=== PATIENT | male | born 1940 | race Caucasian/White ===

== ENCOUNTER 2019-04-25 21:54 | Observation (INO) ==
[2019-04-25] MEDS ORDERED: ALBUTEROL SULFATE/IPRATROPIUM 3 ML NEBU IH ONE (22:12)
[2019-04-25] MEDS ORDERED: predniSONE 20 MG TABLET PO ONE (22:13)
[2019-04-25 22:28] LABS: Hematocrit 36.8 % (42.0-52.0); Hemoglobin 11.5 gm/dL (13.5-18.0); Mean Cell Volume 104.5 fl (78-100); Mean Corpuscular Hemoglobin 32.7 pg (27-31); Mean Corpuscular Hgb Conc 31.3 g/dl (32-36); Mean Platelet Volume 10.5 fl (8-11.3); Neutrophil % 85.6 % (42-75.0); Platelet Count 170 K/mm3 (150-450); Red Blood Count 3.52 M/mm3 (4.7-6.0); Red Cell Distribution Width 12.3 % (11.5-14.0)
[2019-04-25 22:34] LABS: Venous Blood Gas HCO3 32.6 mmol/L (22.0-29.0); Venous Blood Gas pH 7.25 (7.32-7.43)
[2019-04-25 22:36] LABS: BUN/Creatinine Ratio 26.9 (9.0-21.6); Blood Urea Nitrogen 28 mg/dL (6-23); Calcium * 8.3 mg/dL (7.9-10.9); Chloride 101 mmol/L (97-106); Glucose * 208 mg/dL (70-110); Sodium 140 mmol/L (132-142)
[2019-04-25] MEDS ORDERED: AZITHROMYCIN 250 MG TABLET PO ONE (22:53)
[2019-04-25] MEDS ORDERED: ALBUTEROL SULFATE 2.5 MG/0.5 ML VIAL.NEB IH ONE (23:28)
--- NOTE | 2019-04-25 23:44 | ERNOTE ---
Dyspnea - Date Date of Service: 04/25/19 - General Presenting Symptoms: shortness of breath Time Seen by Provider: 04/25/19 22:14 Source: patient Exam Limitations: no limitations - Immun/Allergies/Home Medications Immunizations: IMMUNIZATION HX Immunizations Up to Date Yes History of Influenza Vaccine More Information Required Hx Pneumococcal Vaccination More Information Required Allergies/Adverse Reactions: Allergies Iodinated Contrast Media [Iodinated Contrast- Oral and IV Dye] Adverse Reaction (Intermediate, Verified 04/25/19 22:10) severe rash Home Medications: HOME MEDICATIONS albuterol sulfate 2.5 mg IH DAILY ml 11/14/17 [Last Taken 04/24/19] arformoterol 15 mcg/2 mL solution for nebulization 15 mcg IH Q12H 11/14/17 [Last Taken 04/25/19] aspirin 81 mg chewable tablet 81 mg PO DAILY 11/14/17 [Last Taken 04/25/19 21:00] budesonide 0.25 mg/2 mL suspension for nebulization 0.25 mg IH Q12H 11/14/17 [Last Taken 04/25/19 09:00] ipratropium bromide 0.02 % solution for inhalation 2.5 ml IH Q6H 11/14/17 [Last Taken 04/25/19 15:00] Contour Next Test Strips See Dose Instructions .ROUTE .MEDSUPPLY #100 ea NS 04/14/18 [Last Taken Unknown] Unilet GP Lancet See Dose Instructions .ROUTE .MEDSUPPLY #100 ea NS 04/14/18 [Last Taken Unknown] glimepiride 4 mg tablet 4 mg PO BID #180 tab 07/20/18 [Last Taken 04/25/19 17:00] pioglitazone 15 mg tablet 15 mg PO DAILY #90 tab 07/20/18 [Last Taken 04/25/19 09:00] vitamin B complex 1 tab PO DAILY #90 tab 08/26/18 [Last Taken 04/25/19 09:00] alprazolam 0.5 mg tablet 0.5 mg PO QHS #60 tab 02/15/19 [Last Taken 04/24/19 21:00] alprazolam 0.25 mg tablet 0.25 mg PO .COMPLEX #60 tab 03/24/19 [Last Taken 04/25/19 18:00] carvedilol 6.25 mg tablet 6.25 mg PO BID #180 tab 04/12/19 [Last Taken 04/25/19 17:00] lisinopril 20 mg tablet 20 mg PO DAILY #90 tab 04/12/19 [Last Taken 04/24/19 21:00] simvastatin 40 mg tablet 40 mg PO QPM #90 tab 04/12/19 [Last Taken 04/24/19 21:00] Cholecalciferol (Vitamin D3) [Vitamin D] 2,000 unit PO DAILY 04/26/19 [Last Taken 04/25/19 09:00] Furosemide 5 mg PO .QOD 04/26/19 [Last Taken 04/24/19 09:00] - History of Present Illness Narrative: 78-year-old male presents with shortness of breath. He is brought in by EMS crews for shortness of breath. They stated that when they arrived his oxygen but she is supposed to chronically be on is actually turned off. Patient reports having 2 episodes of shortness of breath today. First episode he was on oxygen, felt short of breath, took a Xanax, and felt improvement/relief of symptoms. Later today/today patient had similar episode that did not resolve when he took his home Xanax. He has a past medical history of severe COPD and requires home O2 and BiPAP. He denies recent fevers or productive cough. Patient states he feels like he has "too much carbon dioxide buildup". Severity: moderate Treatment CUSTOMER SUPPORT SPECIALIST: paramedics Initiating event: Reports: unknown Frequency of episodes: Reports: occassional episodes Modifying Factors - (Improves): Reports: oxygen Modifying Factors (Worsens): Reports: activity Associated Symptoms-Dyspnea: Reports: denies symptoms Prior Treatment: Reports: treated by physician Review of Systems - Review of Systems Constitutional: Present: malaise EYE: Present: no symptoms reported ENT: Present: no symptoms reported Respiratory: Present: shortness of breath, cough, wheezing Musculoskeletal: Present: no symptoms reported Skin: Present: no symptoms reported All Other Systems: All systems neg except as marked Medical History (Last Reviewed 04/26/19 @ 01:43 by Doreen Heath RN) AAA (abdominal aortic aneurysm) Onset Date: Unknown Anemia Onset Date: Unknown Anxiety Onset Date: Unknown COPD (chronic obstructive pulmonary disease) Onset Date: Unknown Severe-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 Bobby Oxygen dependent Onset Date: Unknown Renal insufficiency Onset Date: Unknown Vitamin D deficiency Onset Date: Unknown Heart attack Onset Date: ~12/2006 Herpes zoster Onset Date: Unknown Surgical History: Surgical History (Last Reviewed 04/26/19 @ 01:43 by Doreen Heath RN) Coronary artery disease involving coronary bypass graft Onset Date: ~2006 four-vessels with an KAYLIN Hx of CABG Onset Date: Unknown Family History: Family History (Last Reviewed 04/25/19 @ 22:09 by Shelly Wood RN) Brother Hyperlipemia Diabetes Mother Heart disease Diabetes Sister CVA (cerebral vascular accident) Social History: (Last Reviewed 04/25/19 @ 22:09 by Shelly Wood RN) Social History: Marital status: current occupational status: retired Service: Yes branch: [employer] status: retired Tobacco: Smoking Status: Former smoker Alcohol: alcohol intake: current details: 4 drinks/day Dietary Habits: caffeine: No Physical Exam - Physical Exam General Appearance: Present: wd/wn, alert, mild distress Head Exam: Present: no tenderness w palpation Respiratory: Present: decreased breath sounds, expiration (prolonged), wheezing Cardiovascular/Chest: Present: regular rate, rhythm, normal peripheral pulses Gastrointestinal/Abdominal: Present: nontender Extremity Exam: Present: normal inspection Neurological Exam: Present: alert, oriented, normal mood/affect Skin Exam: Present: normal color, warm/dry Progress - Results and Orders Patient's Lab Results:: I have reviewed the patient's lab results. - Vital Signs Vital Signs: Vital Signs 04/25/19 21:57 04/25/19 22:25 04/25/19 22:35 Temperature 36.5 C Pulse Rate 105 H 104 H 102 H Respiratory Rate 15 24 H 14 Blood Pressure 141/79 O2 Sat by Pulse Oximetry 94 96 04/25/19 23:09 Temperature Pulse Rate 104 H Respiratory Rate 14 Blood Pressure 142/70 O2 Sat by Pulse Oximetry 95 - EKG EKG #1 EKG Comments: Sinus rhythm with no acute ischemic findings. - Progress/Reassessment Chief Complaint: Dyspnea Progress:: Improved - Transfer of Care Expected Disposition: Admit Plan - Plan Plan: 78-year-old male presents with COPD exacerbation with significant CO2 retention. He was given 40 mg p.o. prednisone, DuoNeb, albuterol, 500 mg of azithromycin. He will be placed in observation for further care. Departure Clinical Impression: Chronic obstructive pulmonary disease Qualifiers: COPD type: COPD with acute exacerbation Qualified Code(s): J44.1 - Chronic obstructive pulmonary disease with (acute) exacerbation - Departure Disposition: Still a patient Condition: Stable
[2019-04-26] MEDS ORDERED: ALPRAZolam 0.5 MG TABLET PO SCH ×2 (01:20→09:00)
[2019-04-26] MEDS ORDERED: ALBUTEROL SULFATE/IPRATROPIUM 3 ML NEBU IH PRN (01:30)
[2019-04-26] MEDS ORDERED: ASPIRIN 81 MG TABLET.DR ONE (01:57)
[2019-04-26] MEDS ORDERED: LISINOPRIL 10 MG TABLET ONE (01:57)
[2019-04-26] MEDS ORDERED: SIMVASTATIN 40 MG TABLET ONE (01:59)
[2019-04-26] MEDS: SIMVASTATIN 40 MG TABLET PO SCH ×2 (02:01→20:38)
[2019-04-26] MEDS: ASPIRIN 81 MG TABLET.DR PO SCH ×2 (02:01→20:38)
[2019-04-26] MEDS: LISINOPRIL 20 MG TABLET PO SCH ×2 (02:02→20:38)
--- NOTE | 2019-04-26 08:35 | HP ---
Chief Complaint - Chief Complaint Date of Service: 04/26/19 Time of Service: 08:35 Chief Complaint: increasing shortness of breath History of Present Illness: Leonard Ramsay is a 78-year-old white male with past medical history of COPD, abdominal aortic aneurysm, cardiomyopathy, hypertension, anxiety disorder, who was admitted on 04/26/2019 because of increasing shortness of breath. 5 days prior to admission after attending a [employer] the patient started having increasing shortness of breath. He denied any fever or chills, denied any cough productive of sputum, denied any chest pain, palpitations. On the day of admission the patient noticing worsening of his shortness of breath but initially got relief when he took Xanax. Later on that night his shortness of breath came back and this time it continued despite oxygen, use of his trilogy machine and taking Xanax. He was then brought to the emergency room by EMS. His ABG showed acute partially compensated respiratory acidosis with hypoxemia. He was admitted for acute COPD exacerbation after receiving prednisone, DuoNeb and oxygen in the emergency room. His labs showed microcytic anemia, leukocytosis. His chest x-ray showed no acute cardiopulmonary findings except for chronic changes of emphysema. 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 Bobby Oxygen dependent Onset Date: Unknown Renal insufficiency Onset Date: Unknown Vitamin D deficiency Onset Date: Unknown Heart attack Onset Date: ~12/2006 Herpes zoster Onset Date: Unknown Surgical History: Surgical History (Last Reviewed 04/26/19 @ 01:43 by Doreen Heath RN) Coronary artery disease involving coronary bypass graft Onset Date: ~2006 four-vessels with an KAYLIN Hx of CABG Onset Date: Unknown Family History: Family History (Last Reviewed 04/25/19 @ 22:09 by Shelly Wood RN) Brother Hyperlipemia Diabetes Mother Heart disease Diabetes Sister CVA (cerebral vascular accident) Social History: (Last Reviewed 04/25/19 @ 22:09 by Shelly Wood RN) Social History: Marital status: current occupational status: retired Service: Yes branch: [employer] status: retired Tobacco: Smoking Status: Former smoker Alcohol: alcohol intake: current details: 4 drinks/day Dietary Habits: caffeine: No Review Of Systems (GEN) - Review of Systems Generalized/Overall Review: Absent: Weakness, Chills, Fever EENTM: Absent: Blurred Vision Respiratory: Present: Shortness of Breath, Wheezing. Absent: Cough, Orthopnea Cardiac: Absent: Chest Pain, Edema, Palpitations Abdominal: Absent: Nausea, Vomiting, Abdominal Pain Genitourinary: Absent: Urgency, Frequency Musculoskeletal: Absent: Joint Pain Neurological: Present: Anxiety. Absent: Headache Skin: Absent: Lesions, Rash Immunizations: IMMUNIZATION HX Immunizations Up to Date Yes History of Influenza Vaccine More Information Required Hx Pneumococcal Vaccination More Information Required Allergies/Adverse Reactions: Allergies Allergy/AdvReac Type Severity Reaction Status Date / Time Iodinated Contrast Media AdvReac Intermediate severe rash Verified 04/25/19 22:10 [Iodinated Contrast- Oral and IV Dye] Home Medications: HOME MEDICATIONS albuterol sulfate 2.5 mg IH DAILY ml 11/14/17 [Last Taken 04/24/19] arformoterol 15 mcg/2 mL solution for nebulization 15 mcg IH Q12H 11/14/17 [Last Taken 04/25/19] aspirin 81 mg chewable tablet 81 mg PO DAILY 11/14/17 [Last Taken 04/25/19 21:00] budesonide 0.25 mg/2 mL suspension for nebulization 0.25 mg IH Q12H 11/14/17 [Last Taken 04/25/19 09:00] ipratropium bromide 0.02 % solution for inhalation 2.5 ml IH Q6H 11/14/17 [Last Taken 04/25/19 15:00] Contour Next Test Strips See Dose Instructions .ROUTE .MEDSUPPLY #100 ea NS 1 06/15/17 [Last Taken Unknown] Unilet GP Lancet See Dose Instructions .ROUTE .MEDSUPPLY #100 ea NS 04/14/18 [Last Taken Unknown] glimepiride 4 mg tablet 4 mg PO BID #180 tab 07/20/18 [Last Taken 04/25/19 17:00] pioglitazone 15 mg tablet 15 mg PO DAILY #90 tab 07/20/18 [Last Taken 04/25/19 09:00] vitamin B complex 1 tab PO DAILY #90 tab 08/26/18 [Last Taken 04/25/19 09:00] alprazolam 0.5 mg tablet 0.5 mg PO QHS #60 tab 02/15/19 [Last Taken 04/24/19 21:00] alprazolam 0.25 mg tablet 0.25 mg PO .COMPLEX #60 tab 03/24/19 [Last Taken 04/25/19 18:00] carvedilol 6.25 mg tablet 6.25 mg PO BID #180 tab 04/12/19 [Last Taken 04/25/19 17:00] lisinopril 20 mg tablet 20 mg PO DAILY #90 tab 04/12/19 [Last Taken 04/24/19 21:00] simvastatin 40 mg tablet 40 mg PO QPM #90 tab 04/12/19 [Last Taken 04/24/19 21:00] Cholecalciferol (Vitamin D3) [Vitamin D] 2,000 unit PO DAILY 04/26/19 [Last Taken 04/25/19 09:00] Furosemide 5 mg PO .QOD 04/26/19 [Last Taken 04/24/19 09:00] Exam - Exam Vital Signs: Vital Signs - Last Taken Temp 36 C 04/26/19 06:00 Pulse 89 04/26/19 07:32 Resp 18 04/26/19 07:32 BP 138/82 04/26/19 06:00 Pulse Ox 96 04/26/19 07:32 Constitutional: Present: Alert, Oriented x3, Cooperative ENT Exam: Present: hearing grossly normal Eye Exam: bilateral eye: normal inspection, PERRL, EOMI Neck: Present: supple. Absent: lymphadenopathy (R), lymphadenopathy (L) Respiratory: Present: decreased breath sounds, wheezing. Absent: crackles, rales Cardiovascular/Chest: Present: regular rate, rhythm, no JVD, no murmur Abdomen: Present: Normal bowel sounds, soft, nontender, nondistended Extremity: Present: no calf tenderness, pedal edema Diagnostic Studies: Abnormal Lab Results 04/25/19 04/25/19 04/25/19 Range/Units 22:20 22:20 22:20 WBC 14.0 H (4.0-10.5) K/mm3 RBC 3.52 L (4.7-6.0) M/mm3 Hgb 11.5 L (13.5-18.0) gm/dL Hct 36.8 L (42.0-52.0) % MCV 104.5 H (78-100) fl MCH 32.7 H (27-31) pg MCHC 31.3 L (32-36) g/dl Immature Gran # (Auto) 0.06 H (0.000-0.0310) K/mm3 Neutrophils % 85.6 H (42-75.0) % Lymphocytes % 7.1 L (20-51) % Neutrophils # 12.0 H (1.3-6.0) K/mm3 Lymphocytes # 0.99 L (1.5-3.5) k/mm3 pCO2 76.3 H* (35.0-48.0) mmHg pO2 75.5 H (23.3-35.1) mmHg HCO3 32.6 H (22.0-29.0) mmol/L Total CO2 35.0 H (22.0-26.0) mmol/L Base Excess 3.2 H (-2.0-3.0) mmol/L ABG pH 7.25 L (7.32-7.43) VBG O2 Saturation 92.2 L (94.0-98.0) % Potassium 5.0 H (3.4-4.6) mmol/L Carbon Dioxide 39.0 H (24-32.6) mmol/L Anion Gap 5.0 L (6.8-13.8) mmol/L BUN 28 H D (6-23) mg/dL BUN/Creatinine Ratio 26.9 H (9.0-21.6) Random Glucose 208 H (70-110) mg/dL Laboratory Results WBC 14.0 K/mm3 (4.0-10.5) H 04/25/19 22:20 RBC 3.52 M/mm3 (4.7-6.0) L 04/25/19 22:20 Hgb 11.5 gm/dL (13.5-18.0) L 04/25/19 22:20 Hct 36.8 % (42.0-52.0) L 04/25/19 22:20 MCV 104.5 fl (78-100) H 04/25/19 22:20 MCH 32.7 pg (27-31) H 04/25/19 22:20 MCHC 31.3 g/dl (32-36) L 04/25/19 22:20 RDW 12.3 % (11.5-14.0) 04/25/19 22:20 Plt Count 170 K/mm3 (150-450) 04/25/19 22:20 MPV 10.5 fl (8-11.3) 04/25/19 22:20 Immature Gran % (Auto) 0.40 % (0.001-0.429) 04/25/19 22:20 Immature Gran # (Auto) 0.06 K/mm3 (0.000-0.0310) H 04/25/19 22:20 Neutrophils % 85.6 % (42-75.0) H 04/25/19 22:20 Lymphocytes % 7.1 % (20-51) L 04/25/19 22:20 Monocytes % 5.8 % (0.0-9) 04/25/19 22:20 Eosinophils % 0.9 % (0.0-3.0) 04/25/19 22: Basophils % 0.2 % (0.0-1.0) 04/25/19 22:20 Nucleated RBC % 0.0 k/mm3 (0-1) 04/25/19 22:20 Neutrophils # 12.0 K/mm3 (1.3-6.0) H 04/25/19 22:20 Lymphocytes # 0.99 k/mm3 (1.5-3.5) L 04/25/19 22:20 Monocytes # 0.8 k/mm3 (0.0-1.0) 04/25/19 22:20 Eosinophils # 0.1 k/mm3 (0.0-0.7) 04/25/19 22:20 Absolute Basophils 0.0 k/mm3 (0.0-0.1) 04/25/19 22:20 pCO2 76.3 mmHg (35.0-48.0) H* 04/25/19 22:20 pO2 75.5 mmHg (23.3-35.1) H 04/25/19 22:20 HCO3 32.6 mmol/L (22.0-29.0) H 04/25/19 22:20 Total CO2 35.0 mmol/L (22.0-26.0) H 04/25/19 22:20 Base Excess 3.2 mmol/L (-2.0-3.0) H 04/25/19 22:20 ABG pH 7.25 (7.32-7.43) L 04/25/19 22:20 VBG O2 Saturation 92.2 % (94.0-98.0) L 04/25/19 22:20 Sodium 140 mmol/L (132-142) 04/25/19 22:20 Plasma Sodium 142 mmol/L (130-142) 04/25/19 22:20 Potassium 5.0 mmol/L (3.4-4.6) H 04/25/19 22:20 Chloride 101 mmol/L (97-106) 04/25/19 22:20 Carbon Dioxide 39.0 mmol/L (24-32.6) H 04/25/19 22:20 Anion Gap 5.0 mmol/L (6.8-13.8) L 04/25/19 22:20 BUN 28 mg/dL (6-23) H D 04/25/19 22:20 Creatinine 1.04 mg/dL (0.4-1.4) 04/25/19 22:20 Est GFR (Non-Af Amer) 73 mL/min (60-130) 04/25/19 22:20 BUN/Creatinine Ratio 26.9 (9.0-21.6) H 04/25/19 22:20 Random Glucose 208 mg/dL (70-110) H 04/25/19 22:20 Calcium 8.3 mg/dL (7.9-10.9) 04/25/19 22:20 Assessment/Plan - Narrative Narrative: Leonard Ramsay was admitted for the chief complaint of increasing shortness of breath likely due to acute COPD exacerbation. He does have leukocytosis but no evidence of pneumonia or pulmonary congestion. While this could be due to an acute bronchitis we will we will add a BNP to his labs today as his history of present illness could still point to a cardiac etiology as well. his Echo on showed RF 35-40%, moderate LVH, diastolic dysfunction. We will continue with IV steroids, antibiotics and breathing treatments. - Assessment/Plan (1) COPD with acute exacerbation Problem: Acute (2) Chronic obstructive pulmonary disease Problem: Chronic Qualifiers: COPD type: COPD with acute exacerbation Qualified Code(s): J44.1 - Chronic obstructive pulmonary disease with (acute) exacerbation (3) Macrocytic anemia Problem: Acute (4) Type 2 diabetes mellitus Problem: Chronic Qualifiers: Diabetes mellitus termite exterminator helper insulin use: without fpc use Diabetes mellitus complication status: with kidney complications Diabetes mellitus complication detail: with chronic kidney disease Chronic kidney disease stage: stage 3 (moderate) Qualified Code(s): E11.22 - Type 2 diabetes mellitus with diabetic chronic kidney disease; N18.3 - Chronic kidney disease, stage 3 (moderate) (5) Abdominal aortic aneurysm (AAA) Problem: Chronic Qualifiers: Presence of rupture: without rupture Qualified Code(s): I71.4 - Abdominal aortic aneurysm, without rupture (6) Cardiomyopathy Problem: Chronic Qualifiers: Cardiomyopathy type: unspecified Qualified Code(s): I42.9 - Cardiomyopathy, unspecified (7) Chronic kidney disease (CKD) Problem: Chronic Qualifiers: Chronic kidney disease stage: stage 3 (moderate) Qualified Code(s): N18.3 - Chronic kidney disease, stage 3 (moderate) (8) Diabetes mellitus Problem: Chronic Qualifiers: Diabetes mellitus type: type 2 Diabetes mellitus termite exterminator helper insulin use: without fpc use Diabetes mellitus complication status: with kidney complications Diabetes mellitus complication detail: with chronic kidney disease Chronic kidney disease stage: stage 3 (moderate) Qualified Code(s): E11.22 - Type 2 diabetes mellitus with diabetic chronic kidney disease; N18.3 - Chronic kidney disease, stage 3 (moderate) (9) Hyperlipidemia Problem: Chronic Qualifiers: Hyperlipidemia type: pure hypercholesterolemia Qualified Code(s): E78.00 - Pure hypercholesterolemia, unspecified; E78.0 - Pure hypercholesterolemia (10) Hypertension Problem: Chronic Qualifiers: Hypertension type: essential hypertension Qualified Code(s): I10 - Esse ntial (primary) hypertension (11) Acute respiratory failure with hypoxia and hypercapnia Problem: Acute
[2019-04-26] MEDS ORDERED: ALPRAZolam 0.25 MG TABLET PO SCH ×2 (09:00→21:00)
[2019-04-26] MEDS ORDERED: ASPIRIN 81 MG TAB.CHEW PO SCH (09:00)
[2019-04-26] MEDS ORDERED: LISINOPRIL 20 MG TABLET PO SCH (09:00)
[2019-04-26] MEDS: PIOGLITAZONE HCL 15 MG TABLET PO SCH (09:54)
[2019-04-26] MEDS: VITAMIN B COMP W-C 1 TAB TABLET PO SCH (09:54)
[2019-04-26] MEDS: GLIMEPIRIDE 4 MG TABLET PO SCH ×2 (09:54→17:29)
[2019-04-26] MEDS: CHOLECALCIFEROL 1,000 UNIT CAPSULE PO SCH (09:54)
[2019-04-26] MEDS: METHYLPREDNISOLONE SOD SUCC/PF 40 MG/ML VIAL IV SCH ×3 (09:54→20:45)
[2019-04-26] MEDS: CARVEDILOL 6.25 MG TABLET PO SCH ×2 (09:55→20:38)
[2019-04-26] MEDS: ALBUTEROL SULFATE/IPRATROPIUM 3 ML NEBU IH SCH ×4 (10:30→22:12)
[2019-04-26] MEDS: INSULIN LISPRO 100 UNITS/ML VIAL SC SCH ×3 (12:18→20:37)
[2019-04-26] MEDS ORDERED: FUROSEMIDE 10 MG/ML VIAL IV ONE (13:15)
[2019-04-26] MEDS: ALPRAZolam 0.25 MG TABLET PO PRN (14:42)
[2019-04-26] MEDS ORDERED: SIMVASTATIN 40 MG TABLET PO SCH (17:00)
[2019-04-26] MEDS: AZITHROMYCIN 250 MG TABLET PO SCH (18:39)
[2019-04-26] MEDS ORDERED: NORMAL SALINE 250 ML IV PRN (21:08)
[2019-04-26] MEDS ORDERED: INSULIN LISPRO 100 UNITS/ML VIAL SC SCH (22:15)
[2019-04-27] MEDS: ALBUTEROL SULFATE/IPRATROPIUM 3 ML NEBU IH SCH ×2 (02:21→06:08)
[2019-04-27] MEDS: METHYLPREDNISOLONE SOD SUCC/PF 40 MG/ML VIAL IV SCH (02:30)
[2019-04-27] MEDS: INSULIN LISPRO 100 UNITS/ML VIAL SC SCH (07:03)
[2019-04-27] MEDS: CARVEDILOL 6.25 MG TABLET PO SCH ×2 (07:20→08:10)
[2019-04-27] MEDS: PIOGLITAZONE HCL 15 MG TABLET PO SCH ×2 (07:21→08:10)
[2019-04-27] MEDS: CHOLECALCIFEROL 1,000 UNIT CAPSULE PO SCH ×2 (07:21→08:10)
[2019-04-27] MEDS: GLIMEPIRIDE 4 MG TABLET PO SCH ×2 (07:21→08:10)
[2019-04-27] MEDS: VITAMIN B COMP W-C 1 TAB TABLET PO SCH ×2 (07:21→08:10)
[2019-04-27 08:07] LABS: Hematocrit 37.2 % (42.0-52.0); Hemoglobin 12.1 gm/dL (13.5-18.0); Mean Cell Volume 101.4 fl (78-100); Mean Corpuscular Hgb Conc 32.5 g/dl (32-36); Mean Platelet Volume 10.6 fl (8-11.3); Neutrophil # 18.9 K/mm3 (1.3-6.0); Neutrophil % 93.8 % (42-75.0); Platelet Count 206 K/mm3 (150-450); Red Blood Count 3.67 M/mm3 (4.7-6.0); Red Cell Distribution Width 12.2 % (11.5-14.0); White Blood Count 20.2 K/mm3 (4.0-10.5)
[2019-04-27 08:15] LABS: BUN/Creatinine Ratio 23.5 (9.0-21.6); Calcium * 8.6 mg/dL (7.9-10.9); Carbon Dioxide 34.5 mmol/L (24-32.6); Estimated Creat Clear 42.4; Potassium 4.5 mmol/L (3.4-4.6)
--- NOTE | 2019-04-27 08:22 | DS ---
(1) COPD with acute exacerbation Problem: Resolved (2) Chronic obstructive pulmonary disease Problem: Chronic Qualifiers: COPD type: COPD with acute exacerbation Qualified Code(s): J44.1 - Chronic obstructive pulmonary disease with (acute) exacerbation (3) Macrocytic anemia Problem: Chronic (4) Type 2 diabetes mellitus Problem: Chronic Qualifiers: Diabetes mellitus penitentiary insulin use: without penitentiary use Diabetes mellitus complication status: with kidney complications Diabetes mellitus complication detail: with chronic kidney disease Chronic kidney disease stage: stage 3 (moderate) Qualified Code(s): E11.22 - Type 2 diabetes mellitus with diabetic chronic kidney disease; N18.3 - Chronic kidney disease, stage 3 (moderate) (5) Abdominal aortic aneurysm (AAA) Problem: Chronic Qualifiers: Presence of rupture: without rupture Qualified Code(s): I71.4 - Abdominal aortic aneurysm, without rupture (6) Cardiomyopathy Problem: Chronic Qualifiers: Cardiomyopathy type: unspecified Qualified Code(s): I42.9 - Cardiomyopathy, unspecified (7) Chronic kidney disease (CKD) Problem: Chronic Qualifiers: Chronic kidney disease stage: stage 3 (moderate) Qualified Code(s): N18.3 - Chronic kidney disease, stage 3 (moderate) (8) Diabetes mellitus Problem: Chronic Qualifiers: Diabetes mellitus type: type 2 Diabetes mellitus long term care social worker insulin use: without long term care social worker use Diabetes mellitus complication status: with kidney complications Diabetes mellitus complication detail: with chronic kidney disease Chronic kidney disease stage: stage 3 (moderate) Qualified Code(s): E11.22 - Type 2 diabetes mellitus with diabetic chronic kidney disease; N18.3 - Chronic kidney disease, stage 3 (moderate) (9) Hyperlipidemia Problem: Chronic Qualifiers: Hyperlipidemia type: pure hypercholesterolemia Qualified Code(s): E78.00 - Pure hypercholesterolemia, unspecified; E78.0 - Pure hypercholesterolemia (10) Hypertension Problem: Chronic Qualifiers: Hypertension type: essential hypertension Qualified Code(s): I10 - Essential (primary) hypertension (11) Acute respiratory failure with hypoxia and hypercapnia Problem: Resolved Date of Discharge:: 04/27/19 Hospital Course: Leonard Ramsay is a 78-year-old white male with past medical history of COPD, abdominal aortic aneurysm, cardiomyopathy, hypertension, anxiety disorder, who was admitted on 04/26/2019 because of increasing shortness of breath. 5 days prior to admission after attending a [employer] the patient started having increasing shortness of breath. He denied any fever or chills, denied any cough productive of sputum, denied any chest pain, palpitations. On the day of admission the patient noticing worsening of his shortness of breath but initially got relief when he took Xanax. Later on that night his shortness of breath came back and this time it continued despite oxygen, use of his trilogy machine and taking Xanax. He was then brought to the emergency room by EMS. His ABG showed acute partially compensated respiratory acidosis with hypoxemia. He was admitted for acute COPD exacerbation after receiving prednisone, DuoNeb and oxygen in the emergency room. His labs showed microcytic anemia, leukocytosis. His chest x-ray showed no acute cardiopulmonary findings except for chronic changes of emphysema. He was continued on IV steroids, IV antibiotics, breathing treatments. He is back on his baseline O2 of 3 L NC and is no longer wheezing. His leukocytosis is likely due to his IV steroids. He is stable to be discharged today on oral antibiotics. We will not give prednisone but will continue with his ICS. We will continue with his home medications, inhalers and nebulizers. Procedures Performed: none Results and Findings: Pending Mircobiology Results 04/26/19 10:40 Sputum Sputum Culture - Preliminary Lab Pending Results 04/25/19 22:20: WBC 14.0 H, RBC 3.52 L, Hgb 11.5 L, Hct 36.8 L, MCV 104.5 H, MCH 32.7 H, MCHC 31.3 L, RDW 12.3, Plt Count 170, MPV 10.5, Immature Gran % (Auto) 0.40, Immature Gran # (Auto) 0.06 H, Neutrophils % 85.6 H, Lymphocytes % 7.1 L, Monocytes % 5.8, Eosinophils % 0.9, Basophils % 0.2, Nucleated RBC % 0.0, Neutrophils # 12.0 H, Lymphocytes # 0.99 L, Monocytes # 0.8, Eosinophils # 0.1, Absolute Basophils 0.0 04/25/19 22:20: pCO2 76.3 H*, pO2 75.5 H, HCO3 32.6 H, Total CO2 35.0 H, Base Excess 3.2 H, ABG pH 7.25 L, VBG O2 Saturation 92.2 L 04/25/19 22:20: Sodium 140, Plasma Sodium 142, Potassium 5.0 H, Chloride 101, Carbon Dioxide 39.0 H, Anion Gap 5.0 L, BUN 28 H D, Creatinine 1.04, Est GFR (Non-Af Amer) 73, BUN/Creatinine Ratio 26.9 H, Random Glucose 208 H, Calcium 8.3 04/26/19 06:00: B-Natriuretic Peptide 2576 H 04/26/19 09:45: pCO2 59.2 H, pO2 79.9 L, HCO3 29.7 H, Total CO2 31.6 H, Base Excess 2.5, ABG pH 7.32 L, ABG O2 Sat (Measured) 94.6 04/27/19 08:04: WBC 20.2 H D, RBC 3.67 L, Hgb 12.1 L, Hct 37.2 L, MCV 101.4 H, MCH 33.0 H, MCHC 32.5, RDW 12.2, Plt Count 206, MPV 10.6, Immature Gran % (Auto) 0.70 H, Immature Gran # (Auto) 0.14 H, Neutrophils % 93.8 H, Lymphocytes % 3.1 L, Monocytes % 2.3, Eosinophils % 0.0, Basophils % 0.1, Nucleated RBC % 0.0, Neutrophils # 18.9 H, Lymphocytes # 0.63 L, Monocytes # 0.5, Eosinophils # 0.0, Absolute Basophils 0.0 Discharge Location: Home Disposition: Home self-care Condition: Stable Discharge Activity: Activity as tolerated Discharge Diet: Consistent carbs, Low salt Referrals: Misty Yoo MD [Primary Care Provider] - Problem Oriented Discharge Instructions to Patient/Family: Chronic Obstructive Pulmonary Disease, [id number] Additional Patient Instructions (free text): Call [facility] at [phone] to evaluate your trilogy at home. Follow up with Dr. Yoo 05/05 at 10:15 a.m. Prescriptions (Any new or edited meds): Azithromycin [Zithromax] 250 mg PO DAILY #4 tab Transmission Status: Received by [employer] [place], [place] Complete Home Medications List: Complete Home Medication List: albuterol sulfate 2.5 mg IH DAILY ml 11/14/17 arformoterol 15 mcg/2 mL solution for nebulization 15 mcg IH Q12H 11/14/17 aspirin 81 mg chewable tablet 81 mg PO DAILY 11/14/17 budesonide 0.25 mg/2 mL suspension for nebulization 0.25 mg IH Q12H 11/14/17 ipratropium bromide 0.02 % solution for inhalation 2.5 ml IH Q6H 11/14/17 Contour Next Test Strips See Dose Instructions .ROUTE .MEDSUPPLY #100 ea NS 04/14/18 Unilet GP Lancet See Dose Instructions .ROUTE .MEDSUPPLY #100 ea NS 04/14/18 glimepiride 4 mg tablet 4 mg PO BID #180 tab 07/20/18 pioglitazone 15 mg tablet 15 mg PO DAILY #90 tab 07/20/18 vitamin B complex 1 tab PO DAILY #90 tab 08/26/18 alprazolam 0.5 mg tablet 0.5 mg PO QHS #60 tab 02/15/19 alprazolam 0.25 mg tablet 0.25 mg PO .COMPLEX #60 tab 03/24/19 carvedilol 6.25 mg tablet 6.25 mg PO BID #180 tab 04/12/19 lisinopril 20 mg tablet 20 mg PO DAILY #90 tab 04/12/19 simvastatin 40 mg tablet 40 mg PO QPM #90 tab 04/12/19 Cholecalciferol (Vitamin D3) [Vitamin D3] 2,000 unit PO DAILY 04/26/19 Furosemide 5 mg PO .QOD 04/26/19 Azithromycin [Zithromax] 250 mg PO DAILY #4 tab 04/27/19
[2019-04-27] MEDS: AZITHROMYCIN 250 MG TABLET PO SCH (08:55)
[2019-04-27] MEDS: ALPRAZolam 0.25 MG TABLET PO PRN (08:56)
[2019-04-27 09:38] VITALS: BP 140/79
== END 2019-04-27 10:10 | disposition home or self-care (01) ==
LOC: MS 21:54 → ER 21:54 → MS 04-26 00:26
PROVIDERS: ADMIT Family Medicine; ATTEND Internal Medicine
DX: I71.4 Abdominal aortic aneurysm, without rupture; I42.9 Cardiomyopathy, unspecified; I12.9 Hypertensive chronic kidney disease with stage 1 through stage 4 chronic kidney disease, or unspecified chronic kidney disease; J44.1 Chronic obstructive pulmonary disease with (acute) exacerbation; N18.3 Chronic kidney disease, stage 3 (moderate); D53.9 Nutritional anemia, unspecified; E11.22 Type 2 diabetes mellitus with diabetic chronic kidney disease; J96.01 Acute respiratory failure with hypoxia; J96.02 Acute respiratory failure with hypercapnia; E78.00 Pure hypercholesterolemia, unspecified
CPT/HCPCS: 36415; 36416; 36600; 71020; 71046; 80048; 82803; 83519; 83880; 85025; 87040; 87070; 93005; 94640; 94660; 94664; 96365; 96366; 96372; 96375; 99285; G0378

== ENCOUNTER 2020-04-08 14:49 | Observation (INO) ==
[2020-04-08] MEDS ORDERED: ALBUTEROL SULFATE/IPRATROPIUM 3 ML NEBU IH ONE ×2 (15:07→20:55)
[2020-04-08] MEDS ORDERED: METHYLPREDNISOLONE SOD SUCC/PF 125 MG/2 ML VIAL IV ONE (15:07)
[2020-04-08 15:37] LABS: Hematocrit 39.1 % (42.0-52.0); Hemoglobin 11.6 gm/dL (13.5-18.0); Mean Cell Volume 106.8 fl (78-100); Mean Corpuscular Hemoglobin 31.7 pg (27-31); Mean Corpuscular Hgb Conc 29.7 g/dl (32-36); Mean Platelet Volume 11.1 fl (8-11.3); Neutrophil # 9.3 K/mm3 (1.3-6.0); Neutrophil % 90.6 % (42-75.0); Platelet Count 174 K/mm3 (150-450); Red Blood Count 3.66 M/mm3 (4.7-6.0); Red Cell Distribution Width 11.9 % (11.5-14.0); White Blood Count 10.3 K/mm3 (4.0-10.5)
[2020-04-08 15:56] LABS: Albumin * 3.4 gm/dl (3.4-5.0); Anion Gap 3.6 mmol/L (6.8-13.8); Bilirubin, Total 0.3 mg/dL (0.0-1.1); Ca. Corrected For Albumin 9.8 mg/dL (8.4-10.2); Calcium * 9.6 mg/dL (7.9-10.9); Carbon Dioxide 42.1 mmol/L (24-32.6); Potassium 5.7 mmol/L (3.4-4.6); Total Protein 7.2 gm/dL (6.2-8.2); Troponin I 0.018 ng/mL (0.00-0.10)
[2020-04-08] MEDS ORDERED: LEVOFLOXACIN IN DEXTROSE 5 % 500 MG/100 ML BAG IV ONE (16:36)
--- NOTE | 2020-04-08 16:43 | ERNOTE ---
Dyspnea - Date Date of Service: 04/08/20 - General Presenting Symptoms: shortness of breath Time Seen by Provider: 04/08/20 15:03 Source: patient, EMS Exam Limitations: no limitations - Immun/Allergies/Home Medications Immunizations: IMMUNIZATION HX Immunizations Up to Date Yes History of Influenza Vaccine Yes Hx Pneumococcal Vaccination Yes Allergies/Adverse Reactions: Allergies Iodinated Contrast Media [Iodinated Contrast- Oral and IV Dye] Adverse Reaction (Intermediate, Verified 01/26/20 13:24) severe rash Home Medications: HOME MEDICATIONS albuterol sulfate 2.5 mg IH DAILY ml 11/14/17 [Last Taken 04/24/19] arformoterol 15 mcg/2 mL solution for nebulization 15 mcg IH Q12H 11/14/17 [Last Taken 04/25/19] aspirin 81 mg chewable tablet 81 mg PO DAILY 11/14/17 [Last Taken 04/25/19 21:00] budesonide 0.25 mg/2 mL suspension for nebulization 0.25 mg IH Q12H 11/14/17 [Last Taken 04/25/19 09:00] ipratropium bromide 0.02 % solution for inhalation 2.5 ml IH Q6H 11/14/17 [Last Taken 04/25/19 15:00] vitamin B complex 1 tab PO DAILY #90 tab 08/26/18 [Last Taken 04/25/19 09:00] Cholecalciferol (Vitamin D3) [Vitamin D3] 2,000 unit PO DAILY 04/26/19 [Last Taken 04/25/19 09:00] Contour Next Test Strips See Dose Instructions .ROUTE .MEDSUPPLY #100 ea NS 05/03/19 [Last Taken Unknown] Unilet GP Lancet See Dose Instructions .ROUTE .MEDSUPPLY #100 ea NS 05/03/19 [Last Taken Unknown] glimepiride 4 mg tablet 4 mg PO BID #180 tab 07/09/19 [Last Taken Unknown] furosemide 20 mg tablet 10 mg PO .QOD #14 tab 12/29/19 [Last Taken Unknown] alprazolam 0.5 mg tablet 0.5 mg PO BID #60 tab 03/07/20 [Last Taken Unknown] carvedilol 6.25 mg tablet 6.25 mg PO BID #180 tab 03/29/20 [Last Taken Unknown] lisinopril 20 mg tablet 20 mg PO DAILY #90 tab 03/29/20 [Last Taken Unknown] pioglitazone 30 mg tablet 30 mg PO DAILY #30 tab 03/29/20 [Last Taken Unknown] simvastatin 40 mg tablet 40 mg PO QPM #90 tab 03/29/20 [Last Taken Unknown] - History of Present Illness Narrative: Patient presents to the ED for SOB. He really has a hard time pinpointing when this started. He relates that since going to a [facility] he has had problems but especially over the last 3 days he has had increased SOB. On home O2, has turned that up at home to 6L NC. Apparently sats in the low 80s. EMS called today and he was given a breathing treatment so was sent in here. Denies specific CP or fever. Some cough. Severity: moderate Treatment [employer] MONITOR: paramedics Initiating event: Denies: upper resp illness Frequency of episodes: Reports: frequent episodes Modifying Factors - (Improves): Reports: oxygen Modifying Factors (Worsens): Reports: activity Associated Symptoms-Dyspnea: Reports: cough. Denies: fever/chills, lightheadedness Prior Treatment: Reports: recently seen. Denies: currently on antibiotics Review of Systems - Review of Systems Constitutional: Absent: fever EYE: Present: no symptoms reported ENT: Absent: sore throat Respiratory: Present: shortness of breath Cardiology: Absent: chest pain Gastrointestinal/Abdominal: Absent: abdominal pain Genitourinary: Absent: dysuria Neurological: Present: other - no acute unilateral weakness All Other Systems: All systems neg except as marked Medical History (Last Reviewed 04/08/20 @ 16:43 by Idris Alonzo MD) AAA (abdominal aortic aneurysm) Onset Date: Unknown Anemia Onset Date: Unknown Anxiety Onset Date: Unknown COPD (chronic obstructive pulmonary disease) Onset Date: Unknown Severe-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 Bobby Oxygen dependent Onset Date: Unknown Renal insufficiency Onset Date: Unknown Vitamin D deficiency Onset Date: Unknown Heart attack Onset Date: ~12/2006 Herpes zoster Onset Date: Unknown Surgical History: Surgical History (Last Reviewed 04/08/20 @ 16:43 by Idris Alonzo MD) Coronary artery disease involving coronary bypass graft Onset Date: ~2006 four-vessels with an KAYLIN Hx of CABG Onset Date: Unknown Family History: Family History (Last Reviewed 04/08/20 @ 16:43 by Idris Alonzo MD) Brother Hyperlipemia Diabetes Mother Heart disease Diabetes Sister CVA (cerebral vascular accident) Social History: (Last Reviewed 04/08/20 @ 16:43 by Idris Alonzo MD) Social History: Marital status: current occupational status: retired Service: Yes branch: [employer] status: retired Tobacco: Smoking Status: Former smoker Alcohol: alcohol intake: current details: 4 drinks/day Dietary Habits: caffeine: No Physical Exam - Physical Exam General Appearance: Present: alert, other - tachypnea noted Head Exam: Present: normal inspection, no evidence of injury Eye Exam: Normal inspection: bilateral, PERRL: bilateral Ears, Nose, Throat: Present: normal ENT inspection Neck: Present: normal inspection Respiratory: Present: chest nontender, other - distant bilaterally, few scattered wheezes, tachypnea noted Cardiovascular/Chest: Present: regular rate, rhythm, normal peripheral pulses Gastrointestinal/Abdominal: Present: normal bowel sounds, nontender, soft Back Exam: Absent: CVA tenderness (R), CVA tenderness (L) Extremity Exam: Present: other - trace edema, no DVT findings Neurological Exam: Present: alert, no motor/sensory deficits Skin Exam: Present: normal color, warm/dry Progress - Results and Orders Patient's Lab Results:: I have reviewed the patient's lab results. - Vital Signs Patient's Vital Signs:: I have reviewed the patient's vital signs. Vital Signs: Vital Signs 04/08/20 14:57 04/08/20 15:06 04/08/20 15:23 Temperature 36.3 C Pulse Rate 101 H 102 H 102 H Respiratory Rate 21 H 20 Blood Pressure 179/90 H O2 Sat by Pulse Oximetry 97 97 04/08/20 15:39 04/08/20 16:03 Temperature Pulse Rate 102 H 95 Respiratory Rate 20 17 Blood Pressure 176/68 H O2 Sat by Pulse Oximetry 97 100 - EKG EKG #1 EKG read: Interp. by me EKG Comments: Sinus tachycardia rat 105. Non-specific ST/T wave changes, no STEMI noted, this is minimally changed from prior EKG. - X-Ray X-Ray #1 X-Ray: chest Interpretation: Interp. by me X-ray Comments: No real time radiology reads. I personally reviewed CXR image, possible right mid-ling infialtrate, possible mild pulm vasc congestion vs viral pneumonia. - Progress/Reassessment Chief Complaint: Dyspnea Progress Note-Subjective: 04/08/20 16:47 Patient given IV Solumedrol and Placed on BiPap after ABG reviewed. IV ABx for CXR findings. 04/08/20 17:17 Second ABD improved. I spoke wtih Dr Roper who will admit, after discussion with her patient will be taken off the BiPap and see how he does. I spoke with the patient and he understands. Departure Clinical Impression: Acute on chronic respiratory failure with hypoxia and hypercapnia, Pulmonary vascular congestion - Departure Disposition: Still a patient Condition: Fair
[2020-04-08] MEDS ORDERED: FUROSEMIDE 10 MG/ML VIAL IV ONE (16:57)
[2020-04-08] MEDS ORDERED: ACETAMINOPHEN 325 MG TABLET PO PRN (20:34)
[2020-04-08] MEDS: ALBUTEROL SULFATE/IPRATROPIUM 3 ML NEBU IH SCH ×2 (21:09→22:46)
[2020-04-08] MEDS: BUDESONIDE 0.25 MG/2 ML VIAL.NEB IH SCH (21:10)
--- NOTE | 2020-04-08 21:22 | HP ---
Chief Complaint - Chief Complaint Date of Service: 04/08/20 Time of Service: 21:07 Chief Complaint: I have had uncontrolled shortness of breath History of Present Illness: 79-year-old male with past medical history of CAD with quadruple bypass, hypertension, COPD on supplemental oxygen, old CA, type 2 diabetes, anxiety disorder, AAA, cardiomyopathy, and CKD 3 was evaluated in the ER for worsening dyspnea at rest and on exertion and ongoing hypoxia. Patient is normally well controlled on 4 liters of oxygen but says over the past few days he has had an increasing demand and oxygen due to ongoing shortness of breath. He uses inhalers and breathing treatments prescribed to him by his hair spinner but says his symptoms were not responding to the at home therapies. His caregiver became concerned when his oxygen saturation started declining and the patient became increasingly hypoxic. In the ER the patient's oxygen saturation dropped to the 80s so he was started on a BiPAP machine which was later weaned down to a nasal cannula which he is tolerating without any issues. The patient also has a history of congestive heart failure and was found to have vascular congestion on chest x-ray, he also has an elevated BNP which would indicate a decompensation of his CHF. He takes 10 mg of Lasix every other day which previously controlled his CHF however he reports over the past few days he developed fluid buildup on his lower extremities and lungs. He denies any fever or chills and says the majority of his problems is his difficulty breathing. Medical History (Last Reviewed 04/08/20 @ 17:48 by Belkis Lacy RN) AAA (abdominal aortic aneurysm) Onset Date: Unknown Anemia Onset Date: Unknown Anxiety Onset Date: Unknown COPD (chronic obstructive pulmonary disease) Onset Date: Unknown Severe-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 Bobby Oxygen dependent Onset Date: Unknown Renal insufficiency Onset Date: Unknown Vitamin D deficiency Onset Date: Unknown Heart attack Onset Date: ~12/2006 Herpes zoster Onset Date: Unknown Surgical History: Surgical History (Last Reviewed 04/08/20 @ 17:49 by Belkis Lacy RN) Coronary artery disease involving coronary bypass graft Onset Date: ~2006 four-vessels with an KAYLIN Hx of CABG Onset Date: Unknown Family History: Family History (Last Reviewed 04/08/20 @ 17:49 by Belkis Lacy RN) Brother Hyperlipemia Diabetes Mother Heart disease Diabetes Sister CVA (cerebral vascular accident) Social History: (Last Reviewed 04/08/20 @ 17:51 by Belkis Lacy RN) Social History: Marital status: current occupational status: retired Highest level of school completed/degree received: high school graduate Service: Yes branch: [employer] status: retired Tobacco: Smoking Status: Former smoker Alcohol: alcohol intake: current Alcohol type: wine alcohol intake frequency: holiday/special occasion details: 4 drinks/day Substance Use: substance use type: does not use Dietary Habits: caffeine: No Peds Patient Hx - Developmental: No Pertinent Hx Peds Patient Hx - Medical: No Pertinent Hx Peds Patient Hx - Cardiac/Respiratory: No Pertinent Hx Peds Patient Hx - Surgical: No Surgical History Patient History - Cancer: No Hx of Cancer Review Of Systems (GEN) - Review of Systems Generalized/Overall Review: Present: No Symptoms Reported EENTM: Present: No Symptoms Reported Respiratory: Present: Shortness of Breath Cardiac: Present: Edema Abdominal: Present: No Symptoms Reported Genitourinary: Present: No Symptoms Reported Musculoskeletal: Present: No Symptoms Reported Neurological: Present: Anxiety Skin: Present: No Symptoms Reported Endocrine: Present: No Symptoms Reported Immunizations: IMMUNIZATION HX Immunizations Up to Date Yes History of Influenza Vaccine Yes Hx Pneumococcal Vaccination Yes Allergies/Adverse Reactions: Allergies Allergy/AdvReac Type Severity Reaction Status Date / Time Iodinated Contrast Media AdvReac Intermediate severe rash Verified 04/08/20 17:52 [Iodinated Contrast- Oral and IV Dye] Home Medications: HOME MEDICATIONS albuterol sulfate 2.5 mg IH DAILY ml 11/14/17 [Last Taken 04/24/19] arformoterol 15 mcg/2 mL solution for nebulization 15 mcg IH Q12H 11/14/17 [Last Taken 04/25/19] aspirin 81 mg chewable tablet 81 mg PO DAILY 11/14/17 [Last Taken 04/25/19 21:00] budesonide 0.25 mg/2 mL suspension for nebulization 0.25 mg IH Q12H 11/14/17 [Last Taken 04/25/19 09:00] ipratropium bromide 0.02 % solution for inhalation 2.5 ml IH Q6H 11/14/17 [Last Taken 04/25/19 15:00] vitamin B complex 1 tab PO DAILY #90 tab 08/26/18 [Last Taken 04/25/19 09:00] Cholecalciferol (Vitamin D3) [Vitamin D3] 2,000 unit PO DAILY 04/26/19 [Last Taken 04/25/19 09:00] Contour Next Test Strips See Dose Instructions .ROUTE .MEDSUPPLY #100 ea NS 05/03/19 [Last Taken Unknown] Unilet GP Lancet See Dose Instructions .ROUTE .MEDSUPPLY #100 ea NS 05/03/19 [Last Taken Unknown] glimepiride 4 mg tablet 4 mg PO BID #180 tab 07/09/19 [Last Taken Unknown] furosemide 20 mg tablet 10 mg PO .QOD #14 tab 12/29/19 [Last Taken Unknown] alprazolam 0.5 mg tablet 0.5 mg PO BID #60 tab 03/07/20 [Last Taken Unknown] carvedilol 6.25 mg tablet 6.25 mg PO BID #180 tab 03/29/20 [Last Taken Unknown] lisinopril 20 mg tablet 20 mg PO DAILY #90 tab 03/29/20 [Last Taken Unknown] pioglitazone 30 mg tablet 30 mg PO DAILY #30 tab 03/29/20 [Last Taken Unknown] simvastatin 40 mg tablet 40 mg PO QPM #90 tab 03/29/20 [Last Taken Unknown] Exam - Exam Vital Signs: Vital Signs - Last Taken Temp 36.5 C 04/08/20 19:26 Pulse 104 H 04/08/20 19:26 Resp 20 04/08/20 19:26 BP 155/76 H 04/08/20 19:26 Pulse Ox 4 L 04/08/20 19:26 Constitutional: Present: Alert, Oriented x3, Cooperative, Well developed, Well nourished, No distress, Elderly Eye Exam: bilateral eye: normal inspection, PERRL, EOMI Neck: Present: non-tender, full range of motion, supple, normal inspection, trachea midline Back Exam: Present: normal inspection, no CVA tenderness, no vertebral tenderness Breasts: Present: Exam deferred, Nontender Respiratory: Present: no respiratory distress, no accessory muscle use, decreased breath sounds, crackles - Bibasilar crackles, No wheezing Cardiovascular/Chest: Present: normal peripheral pulses, regular rate, rhythm, no chest tenderness, no gallop, no JVD, no murmur, no rub, edema Peripheral Pulses: carotid (R): 3+, carotid (L): 3+, femoral (R): 3+, femoral (L): 3+, dorsalis-pedis (R): 3+, dorsalis-pedis (L): 3+ Abdomen: Present: Normal bowel sounds, soft, nontender, nondistended, no rebound tenderness, no hepatospenomegaly, no masses, obese /Rectal: Present: Exam deferred Extremity: Present: normal range of motion, non-tender, normal inspection, no calf tenderness, normal capillary refill, pedal edema - 2+ pedal edema of right lower extremity Skin Exam: Present: normal color, warm/dry, no cyanosis Lymphatic: Present: no adenopathy Neurologic: Present: quality assurance supervisor II-XII nml as tested, no motor/sensory deficits, alert, normal mood/affect, oriented x 3 Appearance: Present: appropriate appearance, appropriate insight, neat, no memory impairment Eye contact: Present: cooperative, good eye contact, normal speech Thoughts: Present: normal thought pattern, no apparent hallucination Diagnostic Studies: Abnormal Lab Results 04/08/20 04/08/20 04/08/20 Range/Units 15:25 15:25 15:25 RBC 3.66 L (4.7-6.0) M/mm3 Hgb 11.6 L (13.5-18.0) gm/dL Hct 39.1 L (42.0-52.0) % MCV 106.8 H (78-100) fl MCH 31.7 H (27-31) pg MCHC 29.7 L (32-36) g/dl Neutrophils % 90.6 H (42-75.0) % Lymphocytes % 6.4 L (20-51) % Neutrophils # 9.3 H (1.3-6.0) K/mm3 Lymphocytes # 0.66 L (1.5-3.5) k/mm3 pCO2 (35.0-48.0) mmHg pO2 (83.0-108.0) mmHg HCO3 (21.0-28.0) mmol/L Total CO2 (19.0-24.0) mmol/L Base Excess (-2.0-3.0) mmol/L ABG pH (7.35-7.45) ABG O2 Sat (Measured) (94.0-98.0) % Plasma Sodium 144 H (130-142) mmol/L Potassium 5.7 H D (3.4-4.6) mmol/L Carbon Dioxide 42.1 H (24-32.6) mmol/L Anion Gap 3.6 L (6.8-13.8) mmol/L Random Glucose 316 H (70-110) mg/dL B-Natriuretic Peptide 2938 H (5-650) pg/mL Procalcitonin Less than 0.05 L (0.05-0.50) ng/mL 04/08/20 04/08/20 Range/Units 15:43 16:53 RBC (4.7-6.0) M/mm3 Hgb (13.5-18.0) gm/dL Hct (42.0-52.0) % MCV (78-100) fl MCH (27-31) pg MCHC (32-36) g/dl Neutrophils % (42-75.0) % Lymphocytes % (20-51) % Neutrophils # (1.3-6.0) K/mm3 Lymphocytes # (1.5-3.5) k/mm3 pCO2 105.2 H* 65.3 H (35.0-48.0) mmHg pO2 43.7 L 74.9 L (83.0-108.0) mmHg HCO3 44.2 H 35.2 H (21.0-28.0) mmol/L Total CO2 47.4 H 37.2 H (19.0-24.0) mmol/L Base Excess 12.5 H 7.6 H (-2.0-3.0) mmol/L ABG pH 7.24 L (7.35-7.45) ABG O2 Sat (Measured) 67.7 L 93.9 L (94.0-98.0) % Plasma Sodium (130-142) mmol/L Potassium (3.4-4.6) mmol/L Carbon Dioxide (24-32.6) mmol/L Anion Gap (6.8-13.8) mmol/L Random Glucose (70-110) mg/dL B-Natriuretic Peptide (5-650) pg/mL Procalcitonin (0.05-0.50) ng/mL Laboratory Results WBC 10.3 K/mm3 (4.0-10.5) 04/08/20 15:25 RBC 3.66 M/mm3 (4.7-6.0) L 04/08/20 15:25 Hgb 11.6 gm/dL (13.5-18.0) L 04/08/20 15:25 Hct 39.1 % (42.0-52.0) L 04/08/20 15:25 MCV 106.8 fl (78-100) H 04/08/20 15:25 MCH 31.7 pg (27-31) H 04/08/20 15:25 MCHC 29.7 g/dl (32-36) L 04/08/20 15:25 RDW 11.9 % (11.5-14.0) 04/08/20 15:25 Plt Count 174 K/mm3 (150-450) 04/08/20 15:25 MPV 11.1 fl (8-11.3) 04/08/20 15:25 Immature Gran % (Auto) 0.30 % (0.001-0.429) 04/08/20 15: Immature Gran # (Auto) 0.03 K/mm3 (0.000-0.0310) 04/08/20 15:25 Neutrophils % 90.6 % (42-75.0) H 04/08/20 15:25 Lymphocytes % 6.4 % (20-51) L 04/08/20 15:25 Monocytes % 2.4 % (0.0-9) 04/08/20 15:25 Eosinophils % 0.1 % (0.0-3.0) 04/08/20 15: Basophils % 0.2 % (0.0-1.0) 04/08/20 15:25 Nucleated RBC % 0.0 k/mm3 (0-1) 04/08/20 15:25 Neutrophils # 9.3 K/mm3 (1.3-6.0) H 04/08/20 15:25 Lymphocytes # 0.66 k/mm3 (1.5-3.5) L 04/08/20 15:25 Monocytes # 0.3 k/mm3 (0.0-1.0) 04/08/20 15:25 Eosinophils # 0.0 k/mm3 (0.0-0.7) 04/08/20 15:25 Absolute Basophils 0.0 k/mm3 (0.0-0.1) 04/08/20 15:25 pCO2 65.3 mmHg (35.0-48.0) H 04/08/20 16:53 pO2 74.9 mmHg (83.0-108.0) L 04/08/20 16:53 HCO3 35.2 mmol/L (21.0-28.0) H 04/08/20 16:53 Total CO2 37.2 mmol/L (19.0-24.0) H 04/08/20 16:53 Base Excess 7.6 mmol/L (-2.0-3.0) H 04/08/20 16:53 ABG pH 7.35 (7.35-7.45) 04/08/20 16:53 ABG O2 Sat (Measured) 93.9 % (94.0-98.0) L 04/08/20 16:53 Sodium 141 mmol/L (132-142) 04/08/20 15:25 Plasma Sodium 144 mmol/L (130-142) H 04/08/20 15:25 Potassium 4.5 mmol/L (3.4-4.6) D 04/08/20 18:15 Chloride 101 mmol/L (97-106) 04/08/20 15:25 Carbon Dioxide 42.1 mmol/L (24-32.6) H 04/08/20 15:25 Anion Gap 3.6 mmol/L (6.8-13.8) L 04/08/20 15:25 BUN 23 mg/dL (6-23) 04/08/20 15:25 Creatinine 1.15 mg/dL (0.4-1.4) 04/08/20 15:25 Est GFR (Non-Af Amer) 65 mL/min (60-130) 04/08/20 15:25 BUN/Creatinine Ratio 20.0 (9.0-21.6) 04/08/20 15:25 Random Glucose 316 mg/dL (70-110) H 04/08/20 15:25 Lactic Acid, Venous 0.9 mmol/L (0.4-2.0) 04/08/20 15:25 Calcium 9.6 mg/dL (7.9-10.9) 04/08/20 15:25 Calcium Adj for Albumin 9.8 mg/dL (8.4-10.2) 04/08/20 15:25 Total Bilirubin 0.3 mg/dL (0.0-1.1) 04/08/20 15:25 AST 15 U/L (0-48) 04/08/20 15:25 ALT 19 U/L (19-67) 04/08/20 15:25 Alkaline Phosphatase 65 U/L (50-170) 04/08/20 15:25 Troponin I 0.018 ng/mL (0.00-0.10) 04/08/20 15:25 B-Natriuretic Peptide 2938 pg/mL (5-650) H 04/08/20 15:25 Total Protein 7.2 gm/dL (6.2-8.2) 04/08/20 15:25 Albumin 3.4 gm/dl (3.4-5.0) 04/08/20 15:25 Procalcitonin Less than 0.05 ng/mL (0.05-0.50) L 04/08/20 15:25 SARS-CoV-2 (PCR) Not detected (NotDetected) 04/08/20 15:49 Assessment/Plan - Narrative Narrative: Patient was evaluated and medical chart was reviewed and decision to admit to [facility] for observation of a diagnosis of COPD exacerbation with respiratory failure, hypercapnia, and decompensated CHF was made. Patient was administered a dose of IV diuretics, IV steroids, and was started on antibiotics while in the ER. He initially was on a BiPAP machine but we have successfully weaned him down to a nasal cannula which he is tolerating without any issues. Respiratory therapy has been consulted and will be assisting us in stabilizing the patient's breathing throughout the night. He shows clinical evidence of fluid overload so he will need multiple doses of diuretics to diurese him. Patient was also found to have hyperglycemia on labs so we will cover him with a sliding scale in addition to his regular p.o. meds in order to control his blood sugars. Follow- up labs have been ordered for tomorrow morning for reevaluation. In the meantime the patient will be placed on telemetry monitoring and will be watched closely. - Assessment/Plan (1) COPD with acute exacerbation Problem: Acute (2) Acute respiratory failure with hypoxia and hypercapnia Problem: Acute (3) Pulmonary vascular congestion Problem: Acute (4) Hyperkalemia Problem: Resolved (5) Type II diabetes mellitus Problem: Chronic Qualifiers: Diabetes mellitus correction insulin use: without correction use (6) Abdominal aortic aneurysm (AAA) Problem: Chronic Qualifiers: (7) Cardiomyopathy Problem: Chronic Qualifiers: (8) Chronic kidney disease (CKD) Problem: Chronic Qualifiers: Chronic kidney disease stage: stage 3 (moderate) (9) Chronic obstructive pulmonary disease Problem: Chronic Qualifiers: (10) Hyperlipidemia Problem: Chronic Qualifiers: (11) Hypertension Problem: Chronic Qualifiers: (12) Decompensated heart failure Problem: Acute (13) CAD (coronary artery disease) of bypass graft Problem: Chronic (14) Cardiomyopathy Problem: Chronic
[2020-04-08] MEDS: CARVEDILOL 6.25 MG TABLET PO SCH (22:19)
[2020-04-08] MEDS: LISINOPRIL 20 MG TABLET PO SCH (22:19)
[2020-04-08] MEDS: ALPRAZolam 0.5 MG TABLET PO SCH (22:19)
[2020-04-08] MEDS: PANTOPRAZOLE SODIUM 20 MG TABLET.DR PO SCH (22:19)
[2020-04-08] MEDS: GLIMEPIRIDE 4 MG TABLET PO SCH (22:20)
[2020-04-08] MEDS: METHYLPREDNISOLONE SOD SUCC/PF 40 MG/ML VIAL IV SCH (22:20)
[2020-04-08] MEDS: ASPIRIN 81 MG TAB.CHEW PO SCH (22:20)
[2020-04-08] MEDS: FUROSEMIDE 10 MG/ML VIAL IV SCH (22:20)
[2020-04-08] MEDS: INSULIN REGULAR, HUMAN 100 UNITS/ML VIAL SC SCH (22:55)
[2020-04-09] MEDS: ALBUTEROL SULFATE/IPRATROPIUM 3 ML NEBU IH SCH ×3 (03:08→11:31)
[2020-04-09] MEDS: METHYLPREDNISOLONE SOD SUCC/PF 40 MG/ML VIAL IV SCH ×2 (03:12→08:12)
[2020-04-09] MEDS: BUDESONIDE 0.25 MG/2 ML VIAL.NEB IH SCH (06:16)
[2020-04-09] MEDS ORDERED: LEVOFLOXACIN IN DEXTROSE 5 % 500 MG/100 ML BAG IV SCH (07:00)
[2020-04-09] MEDS: INSULIN REGULAR, HUMAN 100 UNITS/ML VIAL SC SCH ×2 (07:08→11:55)
[2020-04-09 07:36] LABS: Hematocrit 38.9 % (42.0-52.0); Hemoglobin 11.9 gm/dL (13.5-18.0); Mean Cell Volume 102.6 fl (78-100); Mean Corpuscular Hemoglobin 31.4 pg (27-31); Mean Corpuscular Hgb Conc 30.6 g/dl (32-36); Mean Platelet Volume 11.1 fl (8-11.3); Neutrophil # 11.3 K/mm3 (1.3-6.0); Neutrophil % 92.1 % (42-75.0); Platelet Count 218 K/mm3 (150-450); Red Blood Count 3.79 M/mm3 (4.7-6.0); Red Cell Distribution Width 11.9 % (11.5-14.0); White Blood Count 12.3 K/mm3 (4.0-10.5)
[2020-04-09] MEDS: PANTOPRAZOLE SODIUM 20 MG TABLET.DR PO SCH (07:58)
[2020-04-09] MEDS: FUROSEMIDE 10 MG/ML VIAL IV SCH (08:01)
[2020-04-09 08:04] LABS: Albumin * 3.9 gm/dl (3.4-5.0); Anion Gap 7.2 mmol/L (6.8-13.8); BUN/Creatinine Ratio 20.9 (9.0-21.6); Bilirubin, Total 0.5 mg/dL (0.0-1.1); Ca. Corrected For Albumin 9.4 mg/dL (8.4-10.2); Calcium * 9.6 mg/dL (7.9-10.9); Carbon Dioxide 40.8 mmol/L (24-32.6); Total Protein 8.4 gm/dL (6.2-8.2)
[2020-04-09] MEDS: ASPIRIN 81 MG TAB.CHEW PO SCH (08:10)
[2020-04-09] MEDS: GLIMEPIRIDE 4 MG TABLET PO SCH (08:10)
[2020-04-09] MEDS: CARVEDILOL 6.25 MG TABLET PO SCH (08:11)
[2020-04-09] MEDS: LISINOPRIL 20 MG TABLET PO SCH (08:11)
[2020-04-09] MEDS: ALPRAZolam 0.5 MG TABLET PO SCH (08:25)
[2020-04-09] MEDS ORDERED: PIOGLITAZONE HCL 15 MG TABLET PO SCH (09:00)
[2020-04-09] MEDS ORDERED: VITAMIN B COMP W-C 1 TAB TABLET PO SCH (09:00)
[2020-04-09] MEDS ORDERED: CHOLECALCIFEROL 1,000 UNIT CAPSULE PO SCH (09:00)
[2020-04-09] MEDS ORDERED: METHYLPREDNISOLONE SOD SUCC/PF 40 MG/ML VIAL IV SCH (12:00)
--- NOTE | 2020-04-09 12:06 | DS ---
(1) COPD with acute exacerbation Problem: Resolved (2) Acute respiratory failure with hypoxia and hypercapnia Problem: Resolved (3) Pulmonary vascular congestion Problem: Acute (4) Hyperkalemia Problem: Resolved (5) Type II diabetes mellitus Problem: Chronic Qualifiers: Diabetes mellitus fpc insulin use: without fpc use (6) Abdominal aortic aneurysm (AAA) Problem: Chronic Qualifiers: (7) Cardiomyopathy Problem: Chronic Qualifiers: (8) Chronic kidney disease (CKD) Problem: Chronic Qualifiers: Chronic kidney disease stage: stage 3 (moderate) (9) Chronic obstructive pulmonary disease Problem: Chronic Qualifiers: (10) Hyperlipidemia Problem: Chronic Qualifiers: (11) Hypertension Problem: Chronic Qualifiers: (12) Decompensated heart failure Problem: Resolved (13) CAD (coronary artery disease) of bypass graft Problem: Chronic (14) Cardiomyopathy Problem: Chronic (15) Acute kidney injury superimposed on CKD Problem: Acute Date of Discharge:: 04/09/20 Hospital Course: 79-year-old male admitted for decompensated CHF, and COPD exacerbation with hypoxia was evaluated at bedside was found to be afebrile and in no acute distress. Patient has been successfully weaned to his baseline oxygen of 4 L by nasal cannula, he is to continue using the CPAP machine at nighttime though he has been previously. This morning he reported significant improvement in his breathing after being treated with multiple doses of IV diuretics, IV steroids, and breathing treatments [id number]. He is currently saturating at 100% by nasal cannula. Given the patient's significant improvement decision to discharge home with additional days of p.o. antibiotics p.o. steroids and an increase in his daily furosemide was made. It was explained to him that his current dose of oral diuretics is no longer enough to prevent fluid overload or worsening of his CHF, so he was instructed to start taking a diuretic daily instead of every other day. The patient was instructed to follow-up with his PCP in the next week. Procedures Performed: none Results and Findings: Lab Pending Results 04/08/20 15:25: WBC 10.3, RBC 3.66 L, Hgb 11.6 L, Hct 39.1 L, MCV 106.8 H, MCH 31.7 H, MCHC 29.7 L, RDW 11.9, Plt Count 174, MPV 11.1, Immature Gran % (Auto) 0.30, Immature Gran # (Auto) 0.03, Neutrophils % 90.6 H, Lymphocytes % 6.4 L, Monocytes % 2.4, Eosinophils % 0.1, Basophils % 0.2, Nucleated RBC % 0.0, Neutrophils # 9.3 H, Lymphocytes # 0.66 L, Monocytes # 0.3, Eosinophils # 0.0, Absolute Basophils 0.0 04/08/20 15:25: Sodium 141, Plasma Sodium 144 H, Potassium 5.7 H D, Chloride 101, Carbon Dioxide 42.1 H, Anion Gap 3.6 L, BUN 23, Creatinine 1.15, Est GFR (Non-Af Amer) 65, BUN/Creatinine Ratio 20.0, Random Glucose 316 H, Calcium 9.6, Calcium Adj for Albumin 9.8, Total Bilirubin 0.3, AST 15, ALT 19, Alkaline Phosphatase 65, Troponin I 0.018, B-Natriuretic Peptide 2938 H, Total Protein 7.2, Albumin 3.4 04/08/20 15:25: Lactic Acid, Venous 0.9 04/08/20 15:25: Procalcitonin Less than 0.05 L 04/08/20 15:43: pCO2 105.2 H*, pO2 43.7 L, HCO3 44.2 H, Total CO2 47.4 H, Base Excess 12.5 H, ABG pH 7.24 L, ABG O2 Sat (Measured) 67.7 L 04/08/20 15:49: SARS-CoV-2 (PCR) Not detected 04/08/20 16:53: pCO2 65.3 H, pO2 74.9 L, HCO3 35.2 H, Total CO2 37.2 H, Base Excess 7.6 H, ABG pH 7.35, ABG O2 Sat (Measured) 93.9 L 04/08/20 18:15: Potassium 4.5 D 04/09/20 07:18: WBC 12.3 H, RBC 3.79 L, Hgb 11.9 L, Hct 38.9 L, MCV 102.6 H, MCH 31.4 H, MCHC 30.6 L, RDW 11.9, Plt Count 218, MPV 11.1, Immature Gran % (Auto) 0.60 H, Immature Gran # (Auto) 0.07 H, Neutrophils % 92.1 H, Lymphocytes % 6.0 L, Monocytes % 1.2, Eosinophils % 0.0, Basophils % 0.1, Nucleated RBC % 0.0, Neutrophils # 11.3 H, Lymphocytes # 0.73 L, Monocytes # 0.2, Eosinophils # 0.0, Absolute Basophils 0.0 04/09/20 07:18: Sodium 138, Plasma Sodium 140, Potassium 4.0, Chloride 94 L, Carbon Dioxide 40.8 H, Anion Gap 7.2, BUN 31 H, Creatinine 1.48 H, Est GFR (Non- Af Amer) 49 L D, BUN/Creatinine Ratio 20.9, Random Glucose 252 H, Calcium 9.6, Calcium Adj for Albumin 9.4, Total Bilirubin 0.5, AST 19, ALT 20, Alkaline Phosphatase 77, Total Protein 8.4 H, Albumin 3.9 Discharge Location: Home Disposition: Home self-care Condition: Fair Face to Face Encounter completed per [facility] Guidelines: No Discharge Activity: Activity as tolerated Discharge Diet: Consistent carbs, Low salt Referrals: Misty Yoo MD [Primary Care Provider] - Prescriptions (Any new or edited meds): Levofloxacin [Levaquin] 500 mg PO DAILY 3 Days #3 tab Transmission Status: Pending to [facility] Prednisone See Taper PO DAILY #6 tab Transmission Status: Pending to [facility] Complete Home Medications List: Complete Home Medication List: albuterol sulfate 2.5 mg IH DAILY ml 11/14/17 arformoterol 15 mcg/2 mL solution for nebulization 15 mcg IH Q12H 11/14/17 aspirin 81 mg chewable tablet 81 mg PO DAILY 11/14/17 budesonide 0.25 mg/2 mL suspension for nebulization 0.25 mg IH Q12H 11/14/17 ipratropium bromide 0.02 % solution for inhalation 2.5 ml IH Q6H 11/14/17 vitamin B complex 1 tab PO DAILY #90 tab 08/26/18 Cholecalciferol (Vitamin D3) [Vitamin D3] 2,000 unit PO DAILY 04/26/19 Contour Next Test Strips See Dose Instructions .ROUTE .MEDSUPPLY #100 ea NS 05/03/19 Unilet GP Lancet See Dose Instructions .ROUTE .MEDSUPPLY #100 ea NS 05/03/19 glimepiride 4 mg tablet 4 mg PO BID #180 tab 07/09/19 furosemide 20 mg tablet 10 mg PO .QOD #14 tab 12/29/19 alprazolam 0.5 mg tablet 0.5 mg PO BID #60 tab 03/07/20 carvedilol 6.25 mg tablet 6.25 mg PO BID #180 tab 03/29/20 lisinopril 20 mg tablet 20 mg PO DAILY #90 tab 03/29/20 pioglitazone 30 mg tablet 30 mg PO DAILY #30 tab 03/29/20 simvastatin 40 mg tablet 40 mg PO QPM #90 tab 03/29/20 Levofloxacin [Levaquin] 500 mg PO DAILY 3 Days #3 tab 04/09/20 Prednisone See Taper PO DAILY #6 tab 04/09/20
[2020-04-09 13:27] VITALS: BP 108/64
[2020-04-09] MEDS ORDERED: SIMVASTATIN 40 MG TABLET PO SCH (17:00)
== END 2020-04-09 13:15 | disposition home or self-care (01) ==
LOC: MS 14:49 → ER 14:49 → MS 17:43
PROVIDERS: ADMIT Family Medicine; ATTEND Family Medicine